=== PATIENT | female | born 1970 | race Caucasian/White ===

== ENCOUNTER 2021-11-16 21:19 | Emergency (ER) | payer OTHER ==
[2021-11-16] MEDS ORDERED: Ketorolac Tromethamine 30 MG/ML VIAL ONE (21:45)
== END 2021-11-16 22:46 | disposition home or self-care (01) ==
LOC: ERS 21:19
DX: S93.401A Sprain of unspecified ligament of right ankle, initial encounter (principal); E03.9 Hypothyroidism, unspecified; W19.XXXA Unspecified fall, initial encounter
CPT/HCPCS: 96372; J1885

== ENCOUNTER 2022-03-01 07:59 | Outpatient (CLI) | payer OTHER | END 2022-03-01 08:00 | disposition home or self-care (01) | LOC: BICMAMMO 07:59 | PROVIDERS: ATTEND Student in an Organized Health Care Education/Training Program | DX: Z12.31 Encounter for screening mammogram for malignant neoplasm of breast (principal) | CPT/HCPCS: 77063; 77067 ==

== ENCOUNTER 2022-12-23 14:13 | Outpatient (CLI) | payer BC | END 2022-12-23 14:14 | disposition home or self-care (01) | LOC: ULT 14:13 | PROVIDERS: ATTEND Student in an Organized Health Care Education/Training Program | DX: R22.1 Localized swelling, mass and lump, neck (principal) | CPT/HCPCS: 76536 ==

== ENCOUNTER 2023-03-30 07:46 | Outpatient (CLI) | payer BC | END 2023-03-30 07:47 | disposition home or self-care (01) | LOC: BICMAMMO 07:46 | DX: Z12.31 Encounter for screening mammogram for malignant neoplasm of breast (principal) | CPT/HCPCS: 77063; 77067 ==

== ENCOUNTER 2023-05-29 17:00 | Outpatient (CLI) | payer BC | END 2023-05-29 17:01 | disposition home or self-care (01) | LOC: SLEEPLAB 17:00 | PROVIDERS: ATTEND Student in an Organized Health Care Education/Training Program | DX: G47.61 Periodic limb movement disorder (principal); G47.9 Sleep disorder, unspecified; R53.83 Other fatigue; R51.9 Headache, unspecified; F41.9 Anxiety disorder, unspecified; R06.83 Snoring; G47.10 Hypersomnia, unspecified; G47.00 Insomnia, unspecified; I49.1 Atrial premature depolarization; I49.3 Ventricular premature depolarization | CPT/HCPCS: 95810 ==

== ENCOUNTER 2023-08-04 08:51 | Outpatient (CLI) | payer BC | END 2023-08-04 08:52 | disposition home or self-care (01) | LOC: BICMAMMO 08:51 | PROVIDERS: ATTEND Family Medicine | DX: Z12.31 Encounter for screening mammogram for malignant neoplasm of breast (principal) | CPT/HCPCS: 77063; 77067 ==